=== PATIENT | female | born 1935 | race Caucasian/White ===

== ENCOUNTER → 2020-06-28 | Outpatient (CLI) | payer MEDICARE ==
[2020-06-17 12:10] VITALS: BP 188/74
== END | disposition home or self-care (01) ==
LOC: LAB 13:12
PROVIDERS: ATTEND Surgery Vascular Surgery
DX: Z01.818 Encounter for other preprocedural examination (principal); Z11.59 Encounter for screening for other viral diseases
CPT/HCPCS: U0003-CS

== ENCOUNTER 2020-07-01 10:08 | Day surgery (SDC) | payer MEDICARE ==
[~2020-07-01] VITALS: Ht 162.6 cm; Wt 82.5 kg
[~2020-07-01 10:08] MED LIST: DEXAMETHASONE SOD PHOS 4 MG/ML VIAL ONE; HEPARIN SODIUM 5,000 UNIT in IV NORMAL SALINE 500ML BAG 500 ML IRR ONE; HYDROmorphone 2 MG/ML VIAL IV PRN; IV RINGERS,LACTATED 1000ML 1,000 ML IV SCH; LIDOCAINE 1% PF 2 ML VIAL. ID PRN; LIDOCAINE 2% PF 5 ML VIAL. ONE; MORPHINE SULFATE 2 MG/ML VIAL. IV PRN; ONDANSETRON PF 4 MG/2 ML VIAL. IV PRN; ONDANSETRON PF 4 MG/2 ML VIAL. ONE; PROCHLORPERAZINE 10 MG/2 ML VIAL. IV PRN; PROPOFOL 10 MG/ML (20ML) VIAL. IV ONE; SEVOFLURANE 61 TO 120 MINUTES. IH ONE; fentaNYL PF VIAL 100 MCG/2 ML VIAL IV PRN; fentaNYL PF VIAL 100 MCG/2 ML VIAL ONE
[2020-07-01] MEDS ORDERED: AMLO5TAB10 PO (10:37)
[2020-07-01] MEDS ORDERED: TEMA15CA6 PO (10:37)
[2020-07-01] MEDS ORDERED: LIPITOR80 MG PO (10:37)
[2020-07-01] MEDS ORDERED: INSU100V6 SQ (10:37)
[2020-07-01] MEDS ORDERED: TRAM50TA PO (10:37)
[2020-07-01] MEDS ORDERED: OMEP20TA63 PO (10:37)
[2020-07-01] MEDS ORDERED: ESCITALOPRAM OX10 MG PO (10:37)
[2020-07-01] MEDS ORDERED: FAMO-63 PO (10:37)
[2020-07-01] MEDS ORDERED: HYDR12.58 PO (10:37)
[2020-07-01] MEDS ORDERED: ASPI-630 PO (10:37)
[2020-07-01] MEDS ORDERED: CALC0.25 PO (10:37)
[2020-07-01] MEDS ORDERED: FURO-69 PO (10:37)
[2020-07-01] MEDS ORDERED: CARV25TA PO (10:37)
[2020-07-01] MEDS ORDERED: INSU100I13 SQ (10:37)
[2020-07-01] MEDS ORDERED: INSULIN LISPRO 100 UNIT/ML 3ML VIAL for OP,RR ONLY. SQ PRN (10:45)
--- NOTE | 2020-07-01 10:57 | PDOC1 ---
History and Physical Date of Admission Date of Admission DATE: 07/01/20 TIME: 10:48 Identification/Chief Complaint Chief Complaint Here for elective left arm AVF creating for CKD Source Source: Patient History of Present Illness History of Present Illness 85 y/o woman with a history of hypertension, diabetes mellitus, and subsequent chronic kidney disease who was referred to me for new dialysis access placement for impending need for hemodialysis. She saw me in the office and had appropri ate work-up including exam and duplex ultrasounds of the arteries and veins in both arms. She presents today for new elective left arm brachiocephalic AV fistula. She has no new complaints since see me in the office, her only changes are that she has had increase in her dose of Lasix to 20 mg daily. Past Medical History Cardiovascular: CAD, HTN, Hyperlipidemia Heme/Onc: No pertinent hx Hepatobiliary: No pertinent hx Psych: No pertinent hx Musculoskeletal: Osteoarthritis Rheumatologic: No pertinent hx Infectious disease: No pertinent hx ENT: No pertinent hx Endocrine: Diabetes Past Surgical History Past Surgical History Carpal tunnel release, coronary stent placement Past Surgical History: Appendectomy, Cholecystectomy Family History Family History: Coronary Artery Disease Current Medications Current Medications Current Medications Heparin Sodium (Porcine) 5000 unit/Sodium Chloride 505 ml @ 505 mls/hr 1X ONCE IRR ; Start 07/01/20 at 06:00; Stop 07/01/20 at 06:59; Status DC Cefazolin Sodium 1 gm/Sodium Chloride 500 ml @ 500 mls/hr 1X ONCE IRR ; Start 07/01/20 at 06:00; Stop 07/01/20 at 06:59; Status DC Ondansetron HCl (Zofran) 4 mg PRN Q6HRS PRN IV NAUSEA/VOMITING; Start 07/01/20 at 07:00; Stop 07/02/20 at 06:59 Fentanyl Citrate (Fentanyl 2ml Vial) 25 mcg PRN Q5MIN PRN IV MILD PAIN 1-3; Start 07/01/20 at 07:00; Stop 07/02/20 at 06:59 Fentanyl Citrate (Fentanyl 2ml Vial) 50 mcg PRN Q5MIN PRN IV MODERATE TO SEVERE PAIN; Start 07/01/20 at 07:00; Stop 07/02/20 at 06:59 Morphine Sulfate (Morphine Sulfate) 1 mg PRN Q10MIN PRN IV SEVERE PAIN 7-10; Start 07/01/20 at 07:00; Stop 07/02/20 at 06:59 Ringer's Solution 1,000 ml @ 30 mls/hr Q24H IV ; Start 07/01/20 at 07:00; Stop 07/01/20 at 18:59 Lidocaine HCl (Xylocaine-Mpf 1% 2ml Vial) 2 ml PRN 1X PRN ID PRIOR TO IV START; Start 07/01/20 at 07:00; Stop 07/02/20 at 06:59 Hydromorphone HCl (Dilaudid) 0.5 mg PRN Q10MIN PRN IV SEV PAIN, Second choice; Start 07/01/20 at 07:00; Stop 07/02/20 at 06:59 Prochlorperazine Edisylate (Compazine) 5 mg PACU PRN PRN IV NAUSEA, MRX1; Start 07/01/20 at 07:00; Stop 07/02/20 at 06:59 Cefazolin Sodium/ Dextrose 50 ml @ 100 mls/hr 1X PREOP PRN IV PRIOR TO PROCEDURE; Start 07/01/20 at 06:00; Stop 07/01/20 at 18:00 Fentanyl Citrate (Fentanyl 2ml Vial) 100 mcg STK-MED ONCE .ROUTE ; Start 07/01/20 at 09:53; Stop 07/01/20 at 09:53; Status DC Propofol (Diprivan) 200 mg STK-MED ONCE IV ; Start 07/01/20 at 09:53; Stop 07/01/20 at 09:53; Status DC Lidocaine HCl (Lidocaine Pf 2% Vial) 5 ml STK-MED ONCE .ROUTE ; Start 07/01/20 at 09:53; Stop 07/01/20 at 09:53; Status DC Dexamethasone Sodium Phosphate (Decadron) 4 mg STK-MED ONCE .ROUTE ; Start 07/01/20 at 09:53; Stop 07/01/20 at 09:53; Status DC Ondansetron HCl (Zofran) 4 mg STK-MED ONCE .ROUTE ; Start 07/01/20 at 09:53; Stop 07/01/20 at 09:53; Status DC Sevoflurane (Ultane) 60 ml STK-MED ONCE IH ; Start 07/01/20 at 09:54; Stop 07/01/20 at 09:54; Status DC Insulin Human Lispro (HumaLOG VIAL for OP,RR ONLY) 0-10 units PRN Q1HR PRN SQ PER PROTOCOL; Start 07/01/20 at 10:45; Stop 07/02/20 at 10:44 Active Scripts Active Reported Lasix (Furosemide) 20 Mg Tablet 20 Mg PO DAILY Tramadol Hcl 50 Mg Tablet 50 Mg PO DAILY PRN Restoril (Temazepam) 15 Mg Capsule 15 Mg PO HS PRN Prilosec Otc (Omeprazole Magnesium) 20 Mg Tablet.dr 40 Mg PO DAILY Humalog (Insulin Lispro) 100 Unit/1 Ml Vial 5 Unit SQ TID Lantus Solostar (Insulin Glargine,Hum.rec.anlog) 100 Unit/1 Ml Insuln.pen 28 Unit SQ QHS Hydrochlorothiazide Tablet (Hydrochlorothiazide) 12.5 Mg Tablet 25 Mg PO DAILY Escitalopram Oxalate 10 Mg Tablet 10 Mg PO DAILY Pepcid (Famotidine) 20 Mg Tablet 20 Mg PO HS Calcitriol 0.25 Mcg Capsule 0.25 Mcg PO DAILY Lipitor (Atorvastatin Calcium) 80 Mg Tablet 80 Mg PO HS Amlodipine Besylate 5 Mg Tablet 5 Mg PO DAILY Aspirin 81 Mg Tab.chew 81 Mg PO DAILY Coreg (Carvedilol) 25 Mg Tablet 25 Mg PO BIDWMEALS Allergies Allergies: Coded Allergies: No Known Drug Allergies (Unverified , 07/01/20) Physical Exam General: Alert, Oriented X3, Cooperative HEENT: Atraumatic, PERRLA Lungs: Clear to auscultation Heart: S1S2, RRR Cardiovascular: S1, S2 Abdomen: Normal bowel sounds, Soft, No tenderness, No masses Rectal Exam: not examined Extremities: No clubbing, No cyanosis, No tenderness/swelling Skin: No rashes, No significant lesion Neuro: Normal gait, Normal speech, Strength at 5/5 X4 ext, Normal tone, Sensation intact Psych/Mental Status: Mental status NL, Mood NL Vitals Vitals Vital Signs Date Time Temp Pulse Resp B/P (MAP) Pulse Ox O2 Delivery O2 Flow Rate FiO2 07/01/20 10:43 97.9 69 20 195/75 96 Room Air 97.9 Images Images Vein mapping of both arms suggests adequate left arm basilic vein and left arm cephalic vein for primary fistula creation VTE Prophylaxis Ordered VTE Prophylaxis Devices: No VTE Pharmacological Prophylaxi: No Assessment/Plan Assessment/Plan We will plan for elective left arm brachiocephalic AV fistula today. Left arm was marked, risks, benefits, alternatives of the procedure were discussed and she wishes to proceed. Anticipate discharge home same day. Consent was signed by me and the patient Justicifation of Admission Dx: Justifications for Admission: Justification of Admission Dx: Comment: (Outpatient surgery do not plan on admission) ONEL ESTRADA MD Jul 01, 2020 10:57
[2020-07-01 10:58] LABS: CALCIUM 8.7 mg/dL (8.5-10.1); CREATININE 2.3 mg/dL (0.6-1.0); GFR 20.2; POTASSIUM 4.3 mmol/L (3.5-5.1)
[2020-07-01] MEDS ORDERED: IV NORMAL SALINE 1000ML BAG 1,000 ML IV ONE (11:00)
[2020-07-01] MEDS ORDERED: INSULIN LISPRO 100 UNIT/ML 3ML VIAL for OP,RR ONLY. SQ ONE (11:00)
[2020-07-01 11:01] LABS: BASO # 0.1 x10^3/uL (0.0-0.2); BASO % 1 % (0-3); EOS # 0.2 x10^3/uL (0.0-0.7); EOS % 3 % (0-3); HEMATOCRIT 29.4 % (36.0-47.0); HEMOGLOBIN 9.6 g/dL (12.0-15.5); LYMPH # 1.1 x10^3/uL (1.0-4.8); LYMPH % 14 % (24-48); MEAN CORPUSCULAR HEMOGLOBIN 29 pg (25-35); MEAN CORPUSCULAR HGB CONC 33 g/dL (31-37); MEAN CORPUSCULAR VOLUME 88 fL (79-100); MONO # 0.7 x10^3/uL (0.0-1.1); MONO % 9 % (0-9); NEUT % 74 % (31-73); PLATELET COUNT 211 x10^3/uL (140-400); RED BLOOD COUNT 3.33 x10^6/uL (3.50-5.40); WHITE BLOOD COUNT 8.1 x10^3/uL (4.0-11.0)
[2020-07-01] MEDS ORDERED: SURGICEL FIBRILLAR 1X2 EACH. ONE (11:49)
[2020-07-01] MEDS ORDERED: PAPAVERINE 60 MG/2 ML VIAL. ONE (11:49)
[2020-07-01] MEDS ORDERED: LIDOCAINE 1% Multi-Dose 20 ML VIAL. ONE (11:49)
[2020-07-01] MEDS ORDERED: HEPARIN for IV BOLUS 10,000 UNIT/10 ML VIAL. ONE (12:29)
[2020-07-01] MEDS ORDERED: ePHEDrine PF IN SALINE 50 MG/10 ML SYRINGE. IV ONE (12:39)
--- NOTE | 2020-07-01 13:20 | PDOC4 ---
OPERATIVE NOTE Date: Date: Jul 01, 2020 Pre-Op Diagnosis: Chronic kidney disease impending need for renal replacement therapy Need for long-term hemodialysis access Post-Op Diagnosis: Same as above Procedure Performed: Left arm direct brachial cephalic AV fistula CPT 32931 Surgeon: Bryce Estrada MD Coremaking Supervisor: Kinga Hendricks PA-C -- this was a difficult procedure with small vess els in an ill patient -- a 1st assist was necessary for exposure, control of vessels and positioning / following suture during small vascular anastomosis. This hospital has no medical residents available for 1st assist. Anesthesia Type: General (LMA) Blood Loss: 10 cc Specimans Obtained: none Findings: cephalic vein was easily dilated with a 3mm dilator large brachial artery with a palpable pulse good thrill in the AVF and palpable radial pulse and palmar arch signal at the end of the case Complications: none Operative Note: Patient was taken to the operating room and placed supine on the table. Esthesia was induced with difficulty. The path of the cephalic vein was marked on the arm using a marking pen with ultrasound guidance. The area the brachial artery at the AC fossa was marked. The left arm was prepped and draped in the usual sterile fashion. An appropriate timeout was performed. Local anesthetic was injected and a small oblique incision was made just past the left antecubital fossa. This was carried down with Bovie cautery and sharp dissection until the cephalic vein was identified. Dissection was carried out slightly more medially and the brachial artery was dissected free from surrounding structures and controlled with vessel loop. Pa tient was given intravenous heparin. While the heparin was circulating the cephalic vein was completely mobilized and ligated as close to the antecubital fossa as possible. It was divided and then flushed with heparinized saline. I was easily able to pass a 2.0 then 2.5 and 3.0 mm dilator through the course of the cephalic vein in the upper arm. The vein was flushed with heparinized saline and occluded with a small atraumatic bulldog clamp it was brought to the artery under no tension. The artery was occluded distally and proximally a small vascular clamps and then a standard anterior durotomy was created under 11 scalpel and extended to a 4 mm measured with Terrazas angled scissors. A standard end to side anastomosis was created between the vein and the artery using a running a 7-0 Prolene suture. Just prior to completion of repair the vessels were backbled, for flushed, and irrigated with heparinized saline. The repair was completed and normal for flow was returned to the fistula and then to the hand. There was a palpable left radial pulse and excellent left palmar arch signal in the hand. The fistula is palpated and found to have an excellent thrill. The fistula was mobilized within the arm and a large side branch in the area of the AC fossa was ligated with ties and clips and divided between these to maximize flow through the fistula. Again, the fistula palpable thrill and there was a good radial pulse and palmar arch signal and hand. Excellent hemostasis was ensured at the operative field and the wound was closed. This was closed with deep interrupted 3-0 Vicryl sutures followed by subcuticular 4-0 Vicryl. The arm was cleaned and dried and Dermabond a sterile dressing was placed over incision. Patient was awakened and escorted to recovery in stable condition. There are no complications, she tolerated well throughout, at the end of the case all sponge, needle, and instrument counts were reported to me as correct x2. ONEL ESTRADA MD Jul 01, 2020 13:20
[2020-07-01] MEDS ORDERED: HYDR-3164 PO (13:44)
[2020-07-01] MEDS ORDERED: HYDROcodone/APAP 5/325MG 1 TAB TABLET PO ONE (13:45)
[2020-07-01 14:05] VITALS: BP 163/60
== END 2020-07-01 14:40 | disposition home or self-care (01) ==
LOC: SURG 10:08
PROVIDERS: ATTEND Surgery Vascular Surgery
DX: E11.22 Type 2 diabetes mellitus with diabetic chronic kidney disease (principal); I12.0 Hypertensive chronic kidney disease with stage 5 chronic kidney disease or end stage renal disease; N18.6 End stage renal disease; I25.10 Atherosclerotic heart disease of native coronary artery without angina pectoris; E78.5 Hyperlipidemia, unspecified; M19.90 Unspecified osteoarthritis, unspecified site; Z79.4 Long term (current) use of insulin; Z79.899 Other long term (current) drug therapy; Z79.01 Long term (current) use of anticoagulants; Z82.49 Family history of ischemic heart disease and other diseases of the circulatory system; Z90.49 Acquired absence of other specified parts of digestive tract; Z98.890 Other specified postprocedural states; Z95.5 Presence of coronary angioplasty implant and graft
CPT/HCPCS: 36415; 36821; 80048; 82962; 85025; A7015; J0690; J1100; J1644; J2405; J2704; J3010; J3490; J7040; J1815; J2440